=== PATIENT | male | born 1980 | race Caucasian/White ===

== ENCOUNTER → 2018-12-12 | Outpatient (CLI) | payer OTHER ==
[~2018-12-12] MED LIST: CONRAY-43 43% 50ML VIAL (Q9960) As Ordered ONE; PROHANCE 279.3MG/ML 5ML VIAL (A9576) As Ordered ONE
--- NOTE | 2018-12-12 19:39 | REP ---
Procedure: Left shoulder arthrogram The procedure was performed under the direct supervision of Dr. Sullivan. History: Left shoulder pain The benefits and risks including but not limited to pain, infection, bleeding and anaphylaxis were explained to the patient and informed consent was obtained. Technique: The left glenohumeral joint space was localized using fluoroscopic guidance. The skin was prepped and draped in a sterile fashion. 1% lidocaine was used as a local anesthetic. Using fluoroscopic guidance a 22 gauge spinal needle was inserted and advanced into the joint. 0.5 ml of Conray 43 was injected to verify placement. 11 ml of a solution containing 20 ml of sterile saline and 0.15 ml of ProHance was injected into the joint. The needle was removed and the patient was taken to MRI for postprocedural imaging. The the patient tolerated the procedure well and there were no immediate complications. Less than 6 seconds of fluoro time was utilized for this procedure. Reviewed by SAMMI Germain 12/12/2018 03:47 P Electronically Signed by Tavon Sullivan MD 12/12/2018 07:36 P
--- NOTE | 2019-01-06 16:53 | REP ---
MR ARTHROGRAM OF THE LEFT SHOULDER: HISTORY: Prior labral repair in 2009, rugby accident in 2005, worsening pain. COMPARISON: MRI [facility] dated 07/31/2016. TECHNIQUE: Axial T2 fat sat, coronal oblique T1, T2 fat sat, post arthrogram axial T1 fat sat, proton density, coronal oblique T1 fat sat, T2 sat, sagittal oblique T2 fat sat, ABER T1 fat sat. There is new significant abnormal signal extending through the supraspinatus tendon. This high signal on T2 weighted images extends through the supraspinatus tendon essentially through the entire thickness consistent with a full thickness partial tear. There is scattered intratendinous cystic change extending to the lateral bursal surface of the tendon. The rotator cuff tendons appear intact. Acromion is type 2. Biceps tendon is within the bicipital groove. There does not appear to be a significant tenosynovitis. There is no Hill Sach's deformity. There is no abnormal signal in the deltoid muscle. The biceps labral complex is intact. No slap tear is seen. However there does appear to be a diffuse tear in the inferior labrum. There is subchondral marrow edema in the superolateral humeral head. There is moderate chondromalacia of the glenohumeral joint with mild spurring of the medial humeral head. Chondromalacia of the glenoid is more significant inferiorly with areas of fissuring of the glenoid cartilage both anteriorly and posteriorly with associated tiny subchondral cystic change. There is also subchondral marrow edema in the inferior bony glenoid. There is a moderate joint effusion. IMPRESSION: Full thickness partial tear supraspinatus tendon with intratendinous cystic change extending to the lateral bursal surface of the supraspinatus tendon. Type 2 acromion. Diffuse inferior labral tear. Subchondral marrow edema in the superolateral humeral head. 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 There is associated subchondral marrow edema and cystic change in the inferior bony glenoid. Moderate joint effusion. This report is delayed as we were waiting prior outside studies for direct comparison. The supraspinatus tendon tear has significantly worsened since the prior exam. The inferior labral tear did appear to be present on the prior study. The adjacent chondromalacia and marrow changes in the bony glenoid are new. Electronically Signed by Kvng Javier MD 01/09/2019 06:14 P
== END ==
LOC: M RADPRO 06:32
PROVIDERS: ATTEND Physician Assistant
DX: M75.110 Incomplete rotator cuff tear or rupture of unspecified shoulder, not specified as traumatic (principal); M75.82 Other shoulder lesions, left shoulder; M94.212 Chondromalacia, left shoulder; M25.512 Pain in left shoulder; M25.612 Stiffness of left shoulder, not elsewhere classified
CPT/HCPCS: 23350; 73223; 77002; A9576; Q9960